=== PATIENT | female | born 1970 | race Caucasian/White ===

== ENCOUNTER → 2023-08-02 13:23 | Outpatient (REF) | payer MEDICARE, SELFPAY | LOC: REG 13:23 | PROVIDERS: ATTENDING PHYSICIAN Neurological Surgery; FAMILY PHYSICIAN Internal Medicine | DX: Z98.1 Arthrodesis status (principal) | CPT/HCPCS: 72040 ==

== ENCOUNTER → 2023-09-15 14:20 | Outpatient (REF) | payer MEDICARE, SELFPAY | LOC: RAD 14:20 | PROVIDERS: ATTENDING PHYSICIAN Neurological Surgery; FAMILY PHYSICIAN Internal Medicine | DX: Z98.1 Arthrodesis status (principal) | CPT/HCPCS: 72050 ==

== ENCOUNTER → 2023-12-12 15:11 | Outpatient (REF) | payer MEDICARE, SELFPAY | LOC: REG 15:11 | PROVIDERS: ATTENDING PHYSICIAN Neurological Surgery; FAMILY PHYSICIAN Internal Medicine | DX: Z98.1 Arthrodesis status (principal) | CPT/HCPCS: 72050 ==

== ENCOUNTER → 2024-01-12 08:32 | Outpatient (REF) | payer MEDICARE, SELFPAY | LOC: HWRAD 08:32 | PROVIDERS: ATTENDING PHYSICIAN Neurological Surgery; FAMILY PHYSICIAN Internal Medicine | DX: M54.16 Radiculopathy, lumbar region (principal); M54.50 Low back pain, unspecified | CPT/HCPCS: 72110 ==

== ENCOUNTER → 2024-02-22 09:13 | Outpatient (REF) | payer MEDICARE, SELFPAY | LOC: RAD 09:13 | PROVIDERS: ATTENDING PHYSICIAN Hospitalist; FAMILY PHYSICIAN Internal Medicine | DX: J18.9 Pneumonia, unspecified organism (principal) | CPT/HCPCS: 71046 ==

== ENCOUNTER → 2024-03-27 10:14 | Outpatient (REF) | payer MEDICARE, SELFPAY | LOC: HWRAD 10:14 | PROVIDERS: ATTENDING PHYSICIAN Obstetrics & Gynecology Gynecology; FAMILY PHYSICIAN Internal Medicine | DX: N95.0 Postmenopausal bleeding (principal) | CPT/HCPCS: 76830; 76856 ==

== ENCOUNTER → 2024-03-30 13:05 | Outpatient (REF) | payer MEDICARE, SELFPAY | LOC: HWWDC 13:05 | PROVIDERS: ATTENDING PHYSICIAN Obstetrics & Gynecology Gynecology; FAMILY PHYSICIAN Internal Medicine | DX: Z12.31 Encounter for screening mammogram for malignant neoplasm of breast (principal) | CPT/HCPCS: 77063; 77067 ==

== ENCOUNTER → 2024-05-21 12:03 | Outpatient (REF) | payer MEDICARE, SELFPAY | LOC: RAD 12:03 | PROVIDERS: ATTENDING PHYSICIAN Hospitalist | DX: R68.89 Other general symptoms and signs (principal) | CPT/HCPCS: 71046 ==

== ENCOUNTER 2024-09-02 04:42 | Emergency (ER) | payer MEDICARE, SELFPAY ==
[2024-09-02] VITALS (7 sets, daily range): BP systolic 125–185; BP diastolic 77–122; BMI 26.1
--- NOTE | 2024-09-02 04:54 | ED.GENMED ---
History of Present Illness
<Roger Fuller Faisal, DO - Last Filed: 09/02/24 05:58>
General
Chief Complaint: Abdominal Pain
Time Seen by Provider: 09/02/24 04:57
History of Present Illness
History of Present Illness:
TIME OF INITIAL ENCOUNTER: 5AM
HPI: The patient had sensation of confusion, nausea, general unwell feeling, and diffuse abdominal pain that started about 5 hours ago. Earlier in the evening, she went to dinner and did have some wine but was fine for the next several hours after
dinner. also noted that her heart rate was elevated as well. She had an endoscopy at [facility] a couple of weeks ago that showed a 'ulcer' and is currently taking Prevacid and she also tried Pepcid. She did take half of her usual dose of
morphine prior to arrival here as she does have a history of chronic regional pain syndrome.
EXAM:
GENERAL: Appears slightly uncomfortable
HEENT: Moist oral mucosa
CARDIOVASCULAR: No murmurs, borderline tachycardic heart rate, regular rhythm, No chest wall tenderness
PULMONARY: No respiratory distress, breath sounds are clear and equal
ABDOMEN: Soft with no peritoneal signs, mild diffuse tenderness
NEUROLOGIC: Excellent strength all extremities, no coordination deficits
PSYCHIATRIC: Appropriate mental status, normal insight and judgement
EXTREMITIES: Nontender, no edema, moves all extremities equally
SKIN: No rash, no lesions
NUMBER AND COMPLEXITY OF PROBLEMS ADDRESSED AT THE ENCOUNTER
� Chronic conditions affecting care: Frequent headaches, chronic regional pain syndrome, PTSD, anxiety/depression
� Acute Exacerbation and/or Progression of Chronic Illness: This is an acute problem
� Differential Diagnosis includes: Gastritis, GERD, perforated ulcer, viral syndrome, duodenitis, exacerbation of chronic regional pain syndrome
AMOUNT AND/OR COMPLEXITY OF DATA TO BE REVIEWED AND ANALYZED
� I performed an independent evaluation of and my interpretation is:
EKG:
CT:
X-rays:
Laboratory Studies: White count and hemoglobin levels are normal,
Other:
� Review of other/old records: I reviewed records, the patient was seen here 2022 related to abdominal pain and CT imaging time was unremarkable
� Clinical information was obtained by an independent historian: I spoke to the at bedside
� Prescriptions/Medications Considered but not given: Offered and considered analgesia for the patient states she just took morphine prior to arrival
� Further testing considered but not performed:
RISK OF COMPLICATIONS AND/OR MORBIDITY OR MORTALITY OF PATIENT MANAGEMENT
� Social determinants of health affecting care: Lives at home
� Discussion with other providers:
� Escalation of care including admission/observation vs risk of discharge considered: Will obtain CT imaging. Giving Zofran, Pepcid, and fluids. She is already on Prevacid as an outpatient. She does have chronic pain related
issues.
ANY OTHER UPDATES:
Past History
<Roger Malone, DO - Last Filed: 09/02/24 05:58>
Past History
ED Past Medical History: Cancer, Psychiatric, Other and Other
ED Past Surgical History: Cholecystectomy and Other
Patient has exhibited threatening behavior?: No
PSI?: No
Social History
Tobacco: Former smoker
Alcohol: None
Drug: None
Personal:
Living: with family
Employment: Employed
Family History
Family History: Other (Noncontributory)
Phy Exam
<Jan Cummings, DO - Last Filed: 09/02/24 09:10>
Physical Exam
Physical Exam:
.
Course
<Roger Malone, DO - Last Filed: 09/02/24 05:58>
Orders/Labs/Results
Orders:
Orders
09/02/24 04:53
0.9% Sodium Chloride 1000 ml [Nss] 1,000 ml IV BOLUS
09/02/24 04:54
Famotidine [Pepcid] 20 mg IV NOW STA
Test Result ONCE
09/02/24 05:00
CT Abd/pelvis W Iv Cont Urgent
Comment:
Reason For Exam: diffuse abd pain; known ulcer
09/02/24 05:05
Sterile Water [Sterile Water For Injection] 10 ml .ROUTE .STK-MED ONE
09/02/24 05:13
Alcohol Urgent
Complete Blood Count/With Diff Urgent
Comprehensive Metabolic Panel Urgent
HCG, Serum Qualitative Screen Urgent
Lipase Urgent
09/02/24 05:46
Morphine Sulfate [Morphine Oral Solution] 7.5 mg PO NOW STA
09/02/24 06:07
Morphine Sulfate [Morphine Oral Solution] 7.5 mg PO NOW STA
Abnormal Lab Results
09/02/24
05:13
RBC 3.95 L 10^6/uL
(4.20-5.40)
MCH 32.4 H pg
(27.0-31.0)
Lipase 22 L U/L
(23-300)
09/02/24 05:13
09/02/24 05:13
Vital Signs
Initial and Last Documented VS:
Initial Vital Signs
Pulse Resp BP Pulse Ox
104 22 185/122 100
09/02/24 04:45 09/02/24 04:45 09/02/24 04:45 09/02/24 04:45
Last Documented Vital Signs
Temp Pulse Resp BP Pulse Ox
97.9 F 80 22 146/80 97
09/02/24 04:56 09/02/24 06:42 09/02/24 04:45 09/02/24 06:00 09/02/24 06:42
<Jan Cummings, DO - Last Filed: 09/02/24 09:10>
Orders/Labs/Results
Orders:
Orders
09/02/24 04:53
0.9% Sodium Chloride 1000 ml [Nss] 1,000 ml IV BOLUS
09/02/24 04:54
Famotidine [Pepcid] 20 mg IV NOW STA
Test Result ONCE
09/02/24 05:00
CT Abd/pelvis W Iv Cont Urgent
Comment:
Reason For Exam: diffuse abd pain; known ulcer
09/02/24 05:05
Sterile Water [Sterile Water For Injection] 10 ml .ROUTE [employer]MED ONE
09/02/24 05:13
Alcohol Urgent
Complete Blood Count/With Diff Urgent
Comprehensive Metabolic Panel Urgent
HCG, Serum Qualitative Screen Urgent
Lipase Urgent
09/02/24 05:46
Morphine Sulfate [Morphine Oral Solution] 7.5 mg PO NOW STA
09/02/24 06:07
Morphine Sulfate [Morphine Oral Solution] 7.5 mg PO NOW STA
Abnormal Lab Results
09/02/24
05:13
RBC 3.95 L 10^6/uL
(4.20-5.40)
MCH 32.4 H pg
(27.0-31.0)
Lipase 22 L U/L
(23-300)
09/02/24 05:13
09/02/24 05:13
Vital Signs
Initial and Last Documented VS:
Initial Vital Signs
Pulse Resp BP Pulse Ox
104 22 185/122 100
09/02/24 04:45 09/02/24 04:45 09/02/24 04:45 09/02/24 04:45
Last Documented Vital Signs
Temp Pulse Resp BP Pulse Ox
97.9 F 80 22 146/80 97
09/02/24 04:56 09/02/24 06:42 09/02/24 04:45 09/02/24 06:00 09/02/24 06:42
<Jan Cummings, DO - Last Filed: 09/02/24 09:10>
*Critical Care Note
Total Time (30-74mins, 75-104mins- exclusive of procedures): Not Applicable
<Jan Cummings, DO - Last Filed: 09/02/24 09:10>
Update Note
Update Note:
9 AM update signout pending CT scan and reevaluation labs are noted patient feeling better will try some p.o. fluids and crackers
ED Attending Note
<Roger Malone, DO - Last Filed: 09/02/24 05:58>
-
Portions of this chart may have been created with voice recognition software.� Occasional wrong word or��sound alike� substitutions may have occurred due to the inherent limitations of voice recognition software.
Discharge Plan
Departure
Patient Disposition: Home (Routine Discharge)
Date of Disposition: 09/02/24
Time of Disposition: 09:09
Patient with high blood pressure during this ER visit?: No
Condition: Good
Discharge Problem:
Abdominal pain
Instructions: Abdominal Pain
Prescriptions:
No Action
Ketamine Nasal [place]
1 spray intranasal QIDPRN PRN (Reason: pain)
lansoprazole [Prevacid] 30 MG capsule,delayed release(DR/EC)
30 mg PO QPM
hydromorphone 4 MG tablet
8 mg PO TID
cyclobenzaprine 10 MG tablet
1 tab PO TID @ 0800,1200,1700
Patient Comments:
PT DOES NOT KNOW DOSE
buprenorphine HCl [Belbuca] 450 MCG film
450 mcg BC PRN PRN (Reason: pain)
prednisone 5 mg Tablet
5 mg PO PRN PRN (Reason: Inflammation)
bupropion HCl 300 mg Tablet Extended Release 24 Hr
300 mg PO DAILY
Vraylar 3 mg Capsule
3 mg PO HS
Medical Marijuana
1 dose inhalation PRN PRN (Reason: pain)
conjugated estrogens 1.25 mg Tablet
5 mg PO DAILY
Rx Instructions:
Per Pharmacy
Excedrin Migraine 250-250-65 mg Tablet
1 tab PO DIRECTED
Referrals:
Gio Newsome MD [Family Provider] - Next open appointment
Interventions
Interventions:
*Risk Screen - Suicide Last Done: 09/02/24 04:45
*General Assessment Last Done: 09/02/24 05:21
*Neglect/Abuse Screening Last Done: 09/02/24 04:45
*ED- Fall Risk Assessment Last Done: 09/02/24 05:21
*ED COVID-19 Vaccine History Last Done: 09/02/24 05:21
KR-Lvalmz-Xxvropwvgu Assessment Last Done: 09/02/24 05:21
Discharge Date and Time
Print Language: SERBIAN
[2024-09-02] MEDS: PEPCID 20 MG IV (05:28)
[2024-09-02] MEDS: NSS 1000 IV (05:33)
[2024-09-02 05:52] LABS: % Basophils 0.7 % (0-2); % Eosinophils 1.5 % (0-6); % Immature Granulocytes 0.3 % (0-0.5); % Lymphocytes 37.4 % (20.5-51.1); % Monocytes 7.2 % (1.7-9.3); % Neutrophils 52.9 % (42.2-75.2); Absolute Eosinophils 0.1 10^3/uL (0-0.7); Absolute Lymphocytes 2.2 10^3/uL (1.2-3.4); Absolute Monocytes 0.4 10^3/uL (0.1-0.6); Absolute Neutrophils 3.1 10^3/uL (1.4-6.5); Hemoglobin 12.8 g/dL (12.0-16.0); Mean Corp Hgb Conc. 33.7 g/dL (33.0-37.0); Mean Corpuscular Hgb 32.4 pg (27.0-31.0); Mean Corpuscular Volume 96.2 fL (81.0-99.0); Mean Platelet Volume 9.3 fL (7.4-10.4); Nucleated Red Blood Cells % 0 %; Platelet Count 260 10^3/uL (130-400); Red Blood Cell Count 3.95 10^6/uL (4.20-5.40); Red Cell Dist. Width 13.2 % (11.5-14.5); White Blood Cell Count 5.9 10^3/uL (4.8-10.8)
[2024-09-02 06:07] LABS: ALT (SGPT) 15 U/L (0-35); AST (SGOT) 22 U/L (14-36); Albumin 4.5 g/dl (3.5-5.0); Alkaline Phosphatase 63 U/L (38-126); Blood Urea Nitrogen 16 mg/dl (7-17); Calcium 9.8 mg/dl (8.4-10.2); Carbon Dioxide 28 mmol/L (22-30); Chloride 100 mmol/L (98-107); Estimated Creatinine Clearance 103 ml/min; Glucose 87 mg/dl (70-99); HCG, Serum Qualitative Screen Negative; Lipase 22 U/L (23-300); Potassium 4.2 mmol/L (3.5-5.1); Sodium 138 mmol/L (135-145); Total Bilirubin 0.5 mg/dl (0.2-1.3); eGFR > 60.00
[2024-09-02 06:11] LABS: Alcohol None Detected
[2024-09-02] MEDS: MORPHINE ORAL SOLUTION 7.5 MG PO (06:23)
== END 2024-09-02 09:43 | disposition home or self-care (01) ==
LOC: EMR 04:42
PROVIDERS: Emergency Medicine; EMERGENCY PHYSICIAN Emergency Medicine; FAMILY PHYSICIAN Internal Medicine
DX: R10.84 Generalized abdominal pain (principal); R11.0 Nausea; R41.0 Disorientation, unspecified; K27.9 Peptic ulcer, site unspecified, unspecified as acute or chronic, without hemorrhage or perforation; F41.9 Anxiety disorder, unspecified; F32.A Depression, unspecified; F43.10 Post-traumatic stress disorder, unspecified; G90.50 Complex regional pain syndrome I, unspecified; Z91.040 Latex allergy status; Z91.018 Allergy to other foods; Z91.013 Allergy to seafood; Z91.048 Other nonmedicinal substance allergy status
CPT/HCPCS: 99284; 96361; 96374; 74177; 80053; 82077; 83690; 84703; 85025; Q9967

== ENCOUNTER → 2024-10-29 13:17 | Outpatient (REF) | payer MEDICARE, SELFPAY | LOC: RAD 13:17 | PROVIDERS: ATTENDING PHYSICIAN Neurological Surgery; FAMILY PHYSICIAN Internal Medicine | DX: Z98.1 Arthrodesis status (principal); M54.12 Radiculopathy, cervical region; W19.XXXA Unspecified fall, initial encounter | CPT/HCPCS: 72050 ==

== ENCOUNTER → 2024-10-31 11:25 | Outpatient (REF) | payer MEDICARE, SELFPAY | LOC: RAD 11:25 | PROVIDERS: ATTENDING PHYSICIAN Hospitalist; FAMILY PHYSICIAN Internal Medicine | DX: R07.81 Pleurodynia (principal) | CPT/HCPCS: 71101 ==

== ENCOUNTER 2024-11-08 20:18 | Emergency (ER) | payer MEDICARE, SELFPAY ==
[2024-11-08 20:22] VITALS: BP 146/89
[2024-11-08 21:06] VITALS: BP 115/78
[2024-11-08 21:09] VITALS: BMI 26.3
[2024-11-08 22:00] VITALS: BP 119/77
[2024-11-08] MEDS: NSS 1000 IV (22:10)
[2024-11-08] MEDS: DECADRON 10 MG IV (22:11)
[2024-11-08] MEDS: BENADRYL 25 MG IV (22:13)
[2024-11-08] MEDS: REGLAN 10 MG IV (22:15)
[2024-11-08 22:17] LABS: Hematocrit 33.7 % (37.0-47.0); Hemoglobin 11.2 g/dL (12.0-16.0); Mean Corp Hgb Conc. 33.2 g/dL (33.0-37.0); Mean Corpuscular Volume 98.3 fL (81.0-99.0); Nucleated Red Blood Cells % 0 %; Platelet Count 245 10^3/uL (130-400); Red Cell Dist. Width 13.6 % (11.5-14.5)
[2024-11-08 22:30] LABS: ALT (SGPT) < 10 U/L (0-35); AST (SGOT) 20 U/L (14-36); Albumin 3.7 g/dl (3.5-5.0); Alkaline Phosphatase 64 U/L (38-126); Blood Urea Nitrogen 18 mg/dl (7-17); Calcium 9.4 mg/dl (8.4-10.2); Carbon Dioxide 32 mmol/L (22-30); Chloride 106 mmol/L (98-107); Estimated Creatinine Clearance 103 ml/min; Glucose 86 mg/dl (70-99); Potassium 4.2 mmol/L (3.5-5.1); Sodium 140 mmol/L (135-145); Total Protein 5.8 g/dl (6.3-8.2); eGFR > 60.00
[2024-11-08 23:00] VITALS: BP 112/83
--- NOTE | 2024-11-08 23:42 | ED.GENMED ---
History of Present Illness
General
Chief Complaint: Allergic Reaction
Source: patient
Time Seen by Provider: 11/08/24 21:40
Nursing documentation reviewed up to this point in time: agreed with
History of Present Illness
History of Present Illness:
Note:
CHIEF COMPLAINT(S)
Allergic reaction after receiving propofol and ketamine
HISTORY OF PRESENT ILLNESS
The patient is a 53-year-old female who presents with signs of an allergic reaction following the administration of propofol and ketamine earlier today. She reports noticing the onset of symptoms around 2 p.m. She observed that her tongue was bluish
but denied having difficulty swallowing or breathing. The patient mentioned that she typically experiences migraines and developed one this afternoon. Additionally, she reported chest pain and an unusual sensation in her arm.
REVIEW OF SYSTEMS
- Headache: Reports migraine this afternoon.
- Oral: Blue discoloration of the tongue observed, no difficulty swallowing.
- Respiratory: Denied difficulty breathing.
- Cardiovascular: Reports chest pain.
- Neurological: Usual migraines.
- Musculoskeletal: Unusual sensation in the arm.
PHYSICAL EXAM
General: Alert, no acute distress.
Skin: Warm, dry.
Head: Normocephalic, atraumatic.
Eye Ears, nose, mouth and throat: Oral mucosa moist, blue discoloration of the tongue noted.
Cardiovascular: Normal peripheral perfusion, No edema.
Respiratory: Respirations are non-labored.
Gastrointestinal: Abdomen nondistended.
Back: Normal range of motion, Normal alignment.
Musculoskeletal: Normal ROM, normal strength.
Neurological: Alert and oriented to person, place, time, and situation, No focal neurological deficit observed.
Psychiatric: Cooperative, appropriate mood & affect.
PROBLEM LIST
- Acute allergic reaction
- Migraine
DIFFERENTIAL DIAGNOSIS
The Differential Diagnosis includes, in no particular order and is not limited to:
1. Anaphylaxis
2. Angioedema
3. Drug reaction
4. Migraine with aura
5. Vasospasm
6. Anxiety attack
7. Hypoxia
8. Cardiovascular event
9. Hyperventilation syndrome
10. Neurological event
Disposition:
SUMMARY OF ENCOUNTER
The patient, a 53-year-old female, presented with an allergic reaction following the administration of propofol and ketamine. Upon arrival at the emergency department, she reported a blue discoloration of the tongue but did not experience difficulty
breathing. She had a migraine, which is usual for her, along with chest pain and an unusual sensation in her arm. After treatment, she reported feeling much better, with an improvement in her headache symptoms. The patient mentioned that she is
overdue for her Botox treatment for migraines and expressed her wish to be discharged.
DISPOSITION
Discharge.
ASSESSMENT
The patient likely experienced an acute allergic reaction to administered propofol and ketamine, accompanied by her usual migraine symptoms.
PLAN
The patient has been stabilized and feels significantly better with resolved acute symptoms.
MEDICATION RECONCILIATION
Prescription medication was considered, but ultimately no new medication was prescribed at this time.
MEDICAL DECISION MAKING
- Complexity of Data Reviewed: Chronic conditions affecting care include allergies and migraines. Differential diagnosis considered included anaphylaxis, angioedema, drug reaction, migraine with aura, vasospasm, anxiety attack, hypoxia,
cardiovascular event, hyperventilation syndrome, and neurological event.
- Risk: Consideration of Admission/Observation: Escalation of care including admission/observation was considered given the complexity and risk of the patients presenting complaint and exam findings. However, ultimately, the patient is safe for
outpatient management with close follow-up. Reasoning: Work-up reassuring, does not reveal any acute life/organ-threatening processes, patients symptoms well controlled upon reevaluation, reexamination is reassuring, vitals are stable, patient
agreeable with discharge, reliable for follow-up.
DIAGNOSIS
- Acute allergic reaction due to propofol and ketamine (T88.7)
- Migraine, unspecified, not intractable, without status migrainosus (G43.909)
Past History
Past History
ED Past Medical History: Cancer, Psychiatric, Other and Other
ED Past Surgical History: Cholecystectomy and Other
Patient has exhibited threatening behavior?: No
PSI?: No
Social History
Tobacco: Former smoker
Alcohol: None
Drug: None
Personal:
Living: with family
Employment: Employed
Family History
Family History: Other (Noncontributory)
Phy Exam
General Physical Exam
General Presentation: well appearing and no apparent distress
General Skin: warm and dry
General Habitus: normal
General Mental: alert
General Hydration: appears well hydrated
ENT Exam
ENT Exam: EOMI, neck supple, normocephalic and swallowing well
Additional ENT: Bluish tongue
Eye Exam
Eye Exam: PERRL, cornea clear and conjunctiva normal
Cardiovascular Exam
Cardiovascular Exam: regular rate/rhythm, no edema, no murmur and normal peripheral pulses
Pulmonary Exam
Pulmonary Exam: lungs clear, no respiratory distress, no rales, no crackles, no rhonchi, no stridor, no wheezing and no cough
Gastrointestinal Exam
Gastrointestinal Exam: normal bowel sounds, non tender, soft, no organomegaly, no pulsatile mass and non distended
Neurological Exam
Neurological Exam: alert, oriented x3, no motor deficits and speech normal
Musculoskeletal Exam
Musculoskeletal Exam: full ROM and no edema
Skin Exam
Skin Exam: normal color, warm/dry, no rash and no petechia
Psychiatric Exam
Psychiatric Exam: normal mood/affect
Course
Orders/Labs/Results
Orders:
Orders
11/08/24 20:22
EKG [Electrocardiogram (*1)] Urgent
Reason for Study: Chest Pain
EKG- Treatment ONCE
11/08/24 21:57
0.9% Sodium Chloride 1000 ml [Nss] 1,000 ml IV BOLUS
Dexamethasone Sod Phosphate [Decadron] 10 mg IV NOW STA
Diphenhydramine [Benadryl] 25 mg IV NOW STA
Metoclopramide [Reglan] 10 mg IV NOW STA
11/08/24 22:06
Complete Blood Count/With Diff Urgent
Comprehensive Metabolic Panel Urgent
Erythrocyte Sed Rate Urgent
Abnormal Lab Results
11/08/24
22:06
RBC 3.43 L 10^6/uL
(4.20-5.40)
Hgb 11.2 L g/dL
(12.0-16.0)
Hct 33.7 L %
(37.0-47.0)
MCH 32.7 H pg
(27.0-31.0)
Carbon Dioxide 32 H mmol/L
(22-30)
BUN 18 H mg/dl
(7-17)
Total Protein 5.8 L g/dl
(6.3-8.2)
11/08/24 22:06
11/08/24 22:06
Vital Signs
Initial and Last Documented VS:
Initial Vital Signs
Temp Pulse Resp BP Pulse Ox
97.7 F 94 16 146/89 100
11/08/24 20:22 11/08/24 20:22 11/08/24 20:22 11/08/24 20:22 11/08/24 20:22
Last Documented Vital Signs
Temp Pulse Resp BP Pulse Ox
97.7 F 81 16 112/83 99
11/08/24 20:22 11/08/24 23:35 11/08/24 23:15 11/08/24 23:00 11/08/24 23:15
*Pulse Oximetry
SaO2: 99
Oxygen Mode of Delivery: Room air
Patient hypoxic: no
*Critical Care Note
Total Time (30-74mins, 75-104mins- exclusive of procedures): Not Applicable
ED Attending Note
-
Portions of this chart may have been created with voice recognition software.� Occasional wrong word or��sound alike� substitutions may have occurred due to the inherent limitations of voice recognition software.
Discharge Plan
Departure
Patient Disposition: Home (Routine Discharge)
Date of Disposition: 11/08/24
Time of Disposition: 23:48
Patient with high blood pressure during this ER visit?: No
Condition: Good
Discharge Problem:
Allergic reaction, Migraine headache
Instructions: Headaches in adults, Allergic reaction - ED discharge instructions
Prescriptions:
New
diphenhydramine HCl [Benadryl] 25 mg capsule
25 mg PO TID PRN (Reason: allergy symptoms) Qty: 14 0RF
prednisone 50 mg Tablet
50 mg PO DAILY Qty: 4 0RF
epinephrine [EpiPen] 0.3 mg/0.3 mL Auto-Injector
0.3 mg IM .STAT PRN (Reason: anaphylaxis) Qty: 1 0RF
No Action
Ketamine Nasal [place]
1 spray intranasal QIDPRN PRN (Reason: pain)
lansoprazole [Prevacid] 30 MG capsule,delayed release(DR/EC)
30 mg PO QPM
hydromorphone 4 MG tablet
8 mg PO TID
cyclobenzaprine 10 MG tablet
1 tab PO TID @ 0800,1200,1700
Patient Comments:
PT DOES NOT KNOW DOSE
buprenorphine HCl [Belbuca] 450 MCG film
450 mcg BC PRN PRN (Reason: pain)
prednisone 5 mg Tablet
5 mg PO PRN PRN (Reason: Inflammation)
bupropion HCl 300 mg Tablet Extended Release 24 Hr
300 mg PO DAILY
Vraylar 3 mg Capsule
3 mg PO HS
Medical Marijuana
1 dose inhalation PRN PRN (Reason: pain)
conjugated estrogens 1.25 mg Tablet
5 mg PO DAILY
Rx Instructions:
Per Pharmacy
Excedrin Migraine 250-250-65 mg Tablet
1 tab PO DIRECTED
Referrals:
Gio Newsome MD [Family Provider, Internal Medicine]
Activity Restrictions/Additional Instructions:
Thank You for choosing [facility].
It was a pleasure meeting you and taking part in your care. We hope for your continued healing and wellness.
Please read discharge instructions in their entirety. However, they are for general education and may not describe your exact diagnosis at discharge. Information on your ER visit and medical conditions were discussed with you along with appropriate
follow up information...
If indicated, please take your medications as instructed and indicated on discharge paperwork.
Please schedule a follow up appointment as directed. Call to schedule an appointment
Please return to the emergency department with ANY change in, persisting, or worsening of symptoms. If any of your symptoms do not improve, or persist, or become more severe within 6-12 hours, please return to the emergency department for further
care.
Please return to the emergency department if you develop a headache, neck pain/stiffness, fever greater than 100.4F, chest pain, shortness of breath, persistent nausea, vomiting, slurred speech, difficulty walking, numbness/tingling, weakness, signs
of infection or any other symptoms that are worrisome to you.
If you have any questions or concerns please do not hesitate to call the Hospital at or E-mail me directly at [email or web address]
Interventions
Interventions:
*Risk Screen - Suicide Last Done: 11/08/24 20:22
*General Assessment Last Done: 11/08/24 20:22
*Neglect/Abuse Screening Last Done: 11/08/24 20:22
*ED- Fall Risk Assessment Last Done: 11/08/24 21:02
ED- Cardiac Assessment Last Done: 11/08/24 21:02
ED- Pulmonary Assessment Last Done: 11/08/24 21:02
ED-Skin Assessment Last Done: 11/08/24 21:02
Discharge Date and Time
Print Language: MONGOLIAN
== END 2024-11-09 00:08 | disposition home or self-care (01) ==
LOC: EMR 20:18
PROVIDERS: EMERGENCY PHYSICIAN Student in an Organized Health Care Education/Training Program; FAMILY PHYSICIAN Internal Medicine
DX: T78.40XA Allergy, unspecified, initial encounter (principal); G43.909 Migraine, unspecified, not intractable, without status migrainosus; Y92.9 Unspecified place or not applicable; Z87.891 Personal history of nicotine dependence; Z90.49 Acquired absence of other specified parts of digestive tract
CPT/HCPCS: 99283; 96374; 96375; 96361; 80053; 85025; 85652; 93005

== ENCOUNTER 2025-03-22 18:50 | Emergency (ER) | payer MEDICARE, SELFPAY ==
[2025-03-22 18:52] VITALS: BP 191/115
[2025-03-22 19:32] LABS: Hematocrit 35.5 % (37.0-47.0); Hemoglobin 11.6 g/dL (12.0-16.0); Mean Corp Hgb Conc. 32.7 g/dL (33.0-37.0); Mean Corpuscular Volume 98.9 fL (81.0-99.0); Nucleated Red Blood Cells % 0 %; Platelet Count 340 10^3/uL (130-400); Red Cell Dist. Width 13.8 % (11.5-14.5)
[2025-03-22 19:46] LABS: ALT (SGPT) 22 U/L (0-35); AST (SGOT) 30 U/L (14-36); Albumin 4.4 g/dl (3.5-5.0); Alkaline Phosphatase 71 U/L (38-126); Blood Urea Nitrogen 23 mg/dl (7-17); Calcium 9.4 mg/dl (8.4-10.2); Carbon Dioxide 33 mmol/L (22-30); Chloride 97 mmol/L (98-107); Glucose 93 mg/dl (70-99); Lipase 32 U/L (23-300); Potassium 4.2 mmol/L (3.5-5.1); Sodium 133 mmol/L (135-145); Total Protein 6.8 g/dl (6.3-8.2); eGFR > 60.00
[2025-03-22 20:06] LABS: Troponin I < 0.012 ng/ml
[2025-03-22 21:33] VITALS: BP 159/95
[2025-03-22 21:35] VITALS: BP 159/95; BMI 24.2
[2025-03-22 22:00] VITALS: BP 149/95
[2025-03-22] MEDS: NSS 500 IV (22:15)
[2025-03-22] MEDS: TORADOL 30 MG IV (22:17)
[2025-03-22] MEDS: BENADRYL 25 MG IV (22:20)
--- NOTE | 2025-03-22 22:22 | ED.GENMED ---
History of Present Illness
General
Chief Complaint: Chest Pain
Source: patient
Time Seen by Provider: 03/22/25 21:08
History of Present Illness
History of Present Illness:
54-year-old female with past medical history of RSD, hypertension, anxiety/depression/PTSD presenting to the emergency department for evaluation of a multitude of symptoms with noted chest discomfort, palpitations, headache, lightheadedness, nausea
and some shortness of breath secondary to the pain all related to what she believes is to a new prescription and baclofen. Patient states that she usually takes Flexeril or tizanidine but was switched to baclofen by the primary care provider. She
states that currently the symptom bothering her the most is her headache/migraine, noting that she has been to the hospital many times for similar and usually gets relief with migraine cocktail consisting of Reglan Benadryl and Toradol and/or
Decadron. She describes the chest discomfort to be reproducible, diffuse anterior chest, nonpositional nor pleuritic. No cough or recent illnesses. Patient states that the other symptoms/pain are similar to daily episodes of pain that she deals
with. Patient did take an oral dose of her morphine this evening which she states did help slightly but overall still with pain.
Past History
Past History
ED Past Medical History: Cancer, HTN, Psychiatric, Other and Other
ED Past Surgical History: Cholecystectomy, Orthopedic and Other
Patient has exhibited threatening behavior?: No
PSI?: No
Social History
Tobacco: Former smoker
Alcohol: None
Drug: None
Personal:
Living: with family
Employment: Employed
Family History
Family History: Other (Noncontributory)
Review of Systems
Review of Systems
All Other Systems: ROS reviewed and negative except as documented in HPI and ROS
Phy Exam
Physical Exam
Physical Exam:
GENERAL: Alert , holding ice pack on the left side of her head, appears uncomfortable
HEAD: Normocephalic atraumatic
EYE: pupils equal and reactive, 4mm bilat, EOMI, PERRL
NECK: Supple, FROM
ENT: o/p clr, mmm.
CARDIAC: Regular rate and rhythm .
LUNGS: Clear breath sounds bilaterally, no acute respiratory distress, no wheezes/rales/rhonchi
ABDOMEN: Soft, without focal tenderness, no r/g, no cvat
NEUROLOGICAL: Alert and oriented
SKIN: Warm and dry, skin intact.
MUSCULOSKELETAL: well perfused.
PSYCH: Normal and appropriate interaction.
Scores
Heart Failure Risk
Heart Failure Risk Score: Not Applicable
Heart Score for Chest Pain Patients
STEMI patient?: Not applicable
Withdrawal Assessment of Alcohol
Withdrawal Assessment Completed?: Not applicable
Course
Orders/Labs/Results
Orders:
Orders
03/22/25 18:51
EKG [Electrocardiogram (*1)] Urgent
Reason for Study: Chest Pain
EKG- Treatment ONCE
03/22/25 18:55
Electrocardiogram (*1) Urgent
Reason for Study: Chest Pain
03/22/25 18:56
EKG- Treatment ONCE
03/22/25 19:08
Complete Blood Count/With Diff Urgent
Comprehensive Metabolic Panel Urgent
Lipase Urgent
Troponin I Urgent
03/22/25 21:09
CR Chest - 2 Views Urgent
Comment:
Reason For Exam: chest pain
03/22/25 22:00
Diphenhydramine [Benadryl] 25 mg IV NOW STA
Ketorolac [Toradol] 30 mg IV NOW STA
Metoclopramide [Reglan] 10 mg IV NOW STA
03/22/25 22:13
Troponin I Urgent
03/22/25 22:15
0.9% Sodium Chloride 500 ml [Nss] 500 ml IV BOLUS
Abnormal Lab Results
03/22/25
19:08
RBC 3.59 L 10^6/uL
(4.20-5.40)
Hgb 11.6 L g/dL
(12.0-16.0)
Hct 35.5 L %
(37.0-47.0)
MCH 32.3 H pg
(27.0-31.0)
MCHC 32.7 L g/dL
(33.0-37.0)
Sodium 133 L mmol/L
(135-145)
Chloride 97 L mmol/L
(98-107)
Carbon Dioxide 33 H mmol/L
(22-30)
BUN 23 H mg/dl
(7-17)
03/22/25 19:08
03/22/25 19:08
Vital Signs
Initial and Last Documented VS:
Initial Vital Signs
Temp Pulse Resp BP Pulse Ox
97.7 F 89 18 191/115 99
03/22/25 18:52 03/22/25 18:52 03/22/25 18:52 03/22/25 18:52 03/22/25 18:52
Last Documented Vital Signs
Temp Pulse Resp BP Pulse Ox
97.7 F 70 17 124/83 94
03/22/25 21:35 03/22/25 23:15 03/22/25 23:07 03/22/25 23:07 03/22/25 23:15
MDM/Problems Addressed
Differential Diagnosis Includes:
Exacerbation of acute on chronic pain
ACS
PE
Dissection
Pericarditis/Myocarditis
PTX
Musculoskletal pain
MDM/Problems Addressed:
54-year-old female presenting to the emergency department for a multitude of symptoms, even though she was initially wanting to be seen for chest pain she is telling me now that her biggest concern is her migraine headache. The chest pain started
yesterday and given no EKG changes and normal troponin my suspicion for ACS is already very low. I do's her symptoms tonight are all related to her history. Chest x-ray shows no acute abnormalities, no pneumothorax, no effusions or signs of
infection. Will treat with migraine cocktail as patient has had significant relief with this in the past. Dissipate discharge home. Will repeat troponin.
*Radiology
Radiology exam reviewed: preliminary read by ED provider (Normal chest x-ray)
*Pulse Oximetry
SaO2: 100
Oxygen Mode of Delivery: Room air
Patient hypoxic: no
*EKG
Comparison EKG: no changes
Heart Rate: 66
Rate: normal
Rhythm: sinus
[place]: normal axis
Ischemia: no ischemia
*Hr Associate Interpretation
Rate: normal
Heart Rate: 67
Rhythm: sinus
*Critical Care Note
Total Time (30-74mins, 75-104mins- exclusive of procedures): Not Applicable
Data Reviewed
Review of Other/Old Records Reveals: Labs and Records
Patient Management
Escalation/DeEscalation of care consider admission/obs:
Patient reporting significant resolution of her headache and ultimately feels comfortable being discharged home. Repeat troponin negative. Repeat EKG without any changes. Stable for discharge home and outpatient management with primary care
provider. Aware of return precautions.
ED Attending Note
-
Portions of this chart may have been created with voice recognition software.� Occasional wrong word or��sound alike� substitutions may have occurred due to the inherent limitations of voice recognition software.
Discharge Plan
Departure
Patient Disposition: Home (Routine Discharge)
Date of Disposition: 03/22/25
Time of Disposition: 23:13
Patient with high blood pressure during this ER visit?: Yes
Discharge Problem:
Headache, Chest wall pain
Prescriptions:
No Action
Ketamine Nasal [place]
1 spray intranasal QIDPRN PRN (Reason: pain)
lansoprazole [Prevacid] 30 MG capsule,delayed release(DR/EC)
30 mg PO QPM
hydromorphone 4 MG tablet
8 mg PO TID
cyclobenzaprine 10 MG tablet
1 tab PO TID @ 0800,1200,1700
Patient Comments:
PT DOES NOT KNOW DOSE
buprenorphine HCl [Belbuca] 450 MCG film
450 mcg BC PRN PRN (Reason: pain)
prednisone 5 mg Tablet
5 mg PO PRN PRN (Reason: Inflammation)
bupropion HCl 300 mg Tablet Extended Release 24 Hr
300 mg PO DAILY
Vraylar 3 mg Capsule
3 mg PO HS
Medical Marijuana
1 dose inhalation PRN PRN (Reason: pain)
conjugated estrogens 1.25 mg Tablet
5 mg PO DAILY
Rx Instructions:
Per Pharmacy
Excedrin Migraine 250-250-65 mg Tablet
1 tab PO DIRECTED
diphenhydramine HCl [Benadryl] 25 mg capsule
25 mg PO TID PRN (Reason: allergy symptoms) Qty: 14 0RF
prednisone 50 mg Tablet
50 mg PO DAILY Qty: 4 0RF
epinephrine [EpiPen] 0.3 mg/0.3 mL Auto-Injector
0.3 mg IM .STAT PRN (Reason: anaphylaxis) Qty: 1 0RF
Referrals:
Gio Newsome MD [Family Provider, Internal Medicine]
Interventions
Interventions:
*Risk Screen - Suicide Last Done: 03/22/25 18:52
*General Assessment Last Done: 03/22/25 18:52
*Neglect/Abuse Screening Last Done: 03/22/25 21:35
*ED- Fall Risk Assessment Last Done: 03/22/25 21:36
*ED COVID-19 Vaccine History Last Done: 03/22/25 18:52
*ED Influenza Vaccine History Last Done: 03/22/25 18:52
*Nursing Disposition Last Done: 03/22/25 23:23
ED- Cardiac Assessment Last Done: 03/22/25 21:37
Discharge Date and Time
Discharge Date/Time: 03/22/25 23:28
Print Language: GABONESE
[2025-03-22] MEDS: REGLAN 10 MG IV (22:25)
[2025-03-22 22:53] LABS: Troponin I < 0.012 ng/ml
[2025-03-22 23:05] VITALS: BP 124/83
[2025-03-22 23:07] VITALS: BP 124/83
== END 2025-03-22 23:28 | disposition home or self-care (01) ==
LOC: EMR 18:50
PROVIDERS: Emergency Medicine; Physician Assistant Medical; EMERGENCY PHYSICIAN Emergency Medicine; FAMILY PHYSICIAN Internal Medicine
DX: R51.9 Headache, unspecified (principal); R07.89 Other chest pain; G90.50 Complex regional pain syndrome I, unspecified; I10 Essential (primary) hypertension; F41.9 Anxiety disorder, unspecified; F32.A Depression, unspecified; F43.10 Post-traumatic stress disorder, unspecified; Z87.891 Personal history of nicotine dependence
CPT/HCPCS: 99284; 96374; 96375 ×2; 96361; 71046; 80053; 83690; 84484; 85025; 93005

== ENCOUNTER 2025-03-29 03:22 | Emergency (ER) | payer MEDICARE, SELFPAY ==
[2025-03-29 03:24] VITALS: BP 151/92
[2025-03-29 03:37] VITALS: BMI 25.6
[2025-03-29 03:39] VITALS: BP 133/100
[2025-03-29 04:00] VITALS: BP 119/62
[2025-03-29 04:33] LABS: ALT (SGPT) 21 U/L (0-35); AST (SGOT) 26 U/L (14-36); Albumin 4.3 g/dl (3.5-5.0); Alkaline Phosphatase 69 U/L (38-126); Blood Urea Nitrogen 14 mg/dl (7-17); Calcium 9.8 mg/dl (8.4-10.2); Carbon Dioxide 35 mmol/L (22-30); Chloride 104 mmol/L (98-107); Estimated Creatinine Clearance 87 ml/min; Glucose 99 mg/dl (70-99); Potassium 3.9 mmol/L (3.5-5.1); Sodium 143 mmol/L (135-145); Total Protein 6.8 g/dl (6.3-8.2); eGFR > 60.00
[2025-03-29] MEDS: BENADRYL 12.5 MG IV (04:33)
[2025-03-29] MEDS: REGLAN 10 MG IV (04:33)
--- NOTE | 2025-03-29 04:34 | ED.CVA ---
History of Present Illness
General
Chief Complaint: CVA/TIA Symptoms
Source: patient and spouse
Exam Limitations: none
Time Seen by Provider: 03/29/25 03:37
Nursing documentation reviewed up to this point in time: agreed with
Onset of Stroke Symptoms
Onset of symptoms known: Yes
Date of onset of symptoms: 03/29/25
History of Present Illness
History of Present Illness:
Patient with history of chronic pain syndrome, migraine headache, and ongoing intermittent dizziness with nausea, associated with blurred vision and arm tingling sensation over the past 2 months, presents to ED secondary to worsening headache with
dizziness and nausea over the past 1 week. Denies fever or chills. Denies difficulty with ambulation. Denies weakness. Patient states that her symptoms appear to be worse since she fell backwards and hit her head 2 months ago. Patient states
that she never received any imaging studies of her head since the fall. Patient was seen in ED 1 week ago for similar complaint, including chest pain with palpitations, which are still ongoing as well. Denies loss of appetite. Denies difficulty
with sleeping. Denies vomiting or diarrhea. Patient has been recommended to see rough carpenter as well as neurologist for an outpatient consultation, but is having difficult time obtaining timely appointment.
Past History
Past History
ED Past Medical History: Cancer, HTN, Psychiatric, Other and Other
ED Past Surgical History: Cholecystectomy, Orthopedic and Other
Patient has exhibited threatening behavior?: No
PSI?: No
Social History
Tobacco: Former smoker
Alcohol: None
Drug: None
Personal:
Living: with family
Employment: Employed
Family History
Family History: Other (Noncontributory)
Review of Systems
Review of Systems
Allergies reviewed?: Yes
All Other Systems: ROS reviewed and negative except as documented in HPI and ROS
Constitutional: Reports no symptoms; Denies fever
EENT: Reports no symptoms
Respiratory: Reports no symptoms
Cardiac: Reports chest pain and palpitations; Denies syncope
ABD/GI: Reports no symptoms; Denies vomiting or diarrhea
Musculoskeletal: Reports no symptoms
Skin: Reports no symptoms
Neurological: Reports dizzy, headache and numbness
Phy Exam
Physical Exam
Physical Exam:
Physical Exam
General: mild painful distress, not acutely ill. afebrile
Head: nc/at. eomi
Neck: supple. normal range of motion
Heart: s1/s2 regular rate and rhythm
Lungs: no acute respiratory distress. clear bilaterally
Abdomen: normal bowel sounds. not tender.
Neuro: alert and oriented x 3. no focal neurological deficits. normal speech. normal gait
Skin: no rash
Psychiatric: well kept. interactive and cooperative
Extremities: no edema. no calf tenderness.
Course
Orders/Labs/Results
Orders:
Orders
03/29/25 03:59
Complete Blood Count/With Diff Urgent
Comprehensive Metabolic Panel Urgent
03/29/25 04:15
CT Head W/o Iv Contrast Urgent
Comment:
Reason For Exam: headache
Diphenhydramine [Benadryl] 12.5 mg IV NOW STA
Metoclopramide [Reglan] 10 mg IV NOW STA
03/29/25 04:16
Electrocardiogram (*1) Urgent
Reason for Study: Chest Pain
EKG- Treatment ONCE
0.9% Sodium Chloride 250 ml [Nss] 250 ml IV BOLUS
03/29/25 04:20
Troponin I Urgent
Abnormal Lab Results
03/29/25
03:59
RBC 3.60 L 10^6/uL
(4.20-5.40)
Hct 36.3 L %
(37.0-47.0)
MCV 100.8 H fL
(81.0-99.0)
MCH 33.3 H pg
(27.0-31.0)
Absolute Lymphs (auto) 3.5 H 10^3/uL
(1.2-3.4)
Neutrophils % 29.9 L %
(42.2-75.2)
Lymphocytes % 55.8 H %
(20.5-51.1)
Carbon Dioxide 35 H mmol/L
(22-30)
03/29/25 03:59
03/29/25 03:59
Vital Signs
Initial and Last Documented VS:
Initial Vital Signs
Temp Pulse Resp BP Pulse Ox
97.5 F 115 18 151/92 96
03/29/25 03:24 03/29/25 03:24 03/29/25 03:24 03/29/25 03:24 03/29/25 03:24
Last Documented Vital Signs
Temp Pulse Resp BP Pulse Ox
97.5 F 96 11 101/49 94
03/29/25 03:24 03/29/25 05:52 03/29/25 05:52 03/29/25 05:52 03/29/25 05:52
MDM/Problems Addressed
MDM/Problems Addressed:
CT head report reviewed and discussed with patient and spouse. Patient otherwise is afebrile, hemodynamically stable, and without any focal neurological deficit during evaluation. In light of patient's ongoing symptoms, especially chest pain,
patient will be referred to cardiology for an outpatient consultation. In addition, patient will continue to follow-up with neurology as an outpatient, with her ongoing headache and dizziness.
*Pulse Oximetry
SaO2: 96
Oxygen Mode of Delivery: Room air
Patient hypoxic: no
*EKG
Interpreted by ED Provider?: Yes
EKG Intrepretation Date: 03/29/25
Heart Rate: 103
Rate: tachycardiac
Rhythm: sinus
[place]: normal axis
Interval: normal interval
*Critical Care Note
Total Time (30-74mins, 75-104mins- exclusive of procedures): Not Applicable
ED Attending Note
-
Portions of this chart may have been created with voice recognition software.� Occasional wrong word or��sound alike� substitutions may have occurred due to the inherent limitations of voice recognition software.
Discharge Plan
Departure
Patient Disposition: Home (Routine Discharge)
Date of Disposition: 03/29/25
Time of Disposition: 05:48
Patient with high blood pressure during this ER visit?: Yes
Condition: Fair
Discharge Problem:
Headache, Chest pain
Instructions: Headaches in adults, Chest Pain DCA Follow Up
Prescriptions:
No Action
Ketamine Nasal [place]
1 spray intranasal QIDPRN PRN (Reason: pain)
lansoprazole [Prevacid] 30 MG capsule,delayed release(DR/EC)
30 mg PO QPM
hydromorphone 4 MG tablet
8 mg PO TID
cyclobenzaprine 10 MG tablet
1 tab PO TID @ 0800,1200,1700
Patient Comments:
PT DOES NOT KNOW DOSE
buprenorphine HCl [Belbuca] 450 MCG film
450 mcg BC PRN PRN (Reason: pain)
prednisone 5 mg Tablet
5 mg PO PRN PRN (Reason: Inflammation)
bupropion HCl 300 mg Tablet Extended Release 24 Hr
300 mg PO DAILY
Vraylar 3 mg Capsule
3 mg PO HS
Medical Marijuana
1 dose inhalation PRN PRN (Reason: pain)
conjugated estrogens 1.25 mg Tablet
5 mg PO DAILY
Rx Instructions:
Per [facility]
Excedrin Migraine 250-250-65 mg Tablet
1 tab PO DIRECTED
diphenhydramine HCl [Benadryl] 25 mg capsule
25 mg PO TID PRN (Reason: allergy symptoms) Qty: 14 0RF
prednisone 50 mg Tablet
50 mg PO DAILY Qty: 4 0RF
epinephrine [EpiPen] 0.3 mg/0.3 mL Auto-Injector
0.3 mg IM .STAT PRN (Reason: anaphylaxis) Qty: 1 0RF
Referrals:
Dung Hurtado DO [Active, Cardiology]
Myles Bey MD [Active, Neurology]
Gio Newsome MD [Family Provider, Internal Medicine]
Activity Restrictions/Additional Instructions:
As discussed, please follow-up for with your primary care physician, as well as referred specialists for further evaluation and treatment.
Interventions
Interventions:
*Risk Screen - Suicide Last Done: 03/29/25 03:29
*General Assessment Last Done: 03/29/25 03:29
*Neglect/Abuse Screening Last Done: 03/29/25 03:29
*ED- Fall Risk Assessment Last Done: 03/29/25 03:29
*ED COVID-19 Vaccine History Last Done: 03/29/25 03:29
*ED Influenza Vaccine History Last Done: 03/29/25 03:29
*Nursing Disposition Last Done: 03/29/25 05:58
ED- Pulmonary Assessment Last Done: 03/29/25 03:43
ED- Neurological Assessment Last Done: 03/29/25 03:43
ED- Cardiac Assessment Last Done: 03/29/25 03:43
ED Swallowing Screen Last Done: 03/29/25 03:55
Discharge Date and Time
Discharge Date/Time: 03/29/25 06:10
Print Language: TUNISIAN
[2025-03-29] MEDS: NSS 250 IV (04:47)
--- NOTE | 2025-03-29 04:55 | EDRN ---
PAtient takes morphine and baclofen q8 hrs at home. Dr. Damon gave the ok for patient to take 0500 dose that patient brought in from home.
[2025-03-29 04:57] LABS: Hematocrit 36.3 % (37.0-47.0); Hemoglobin 12.0 g/dL (12.0-16.0); Mean Corp Hgb Conc. 33.1 g/dL (33.0-37.0); Mean Corpuscular Volume 100.8 fL (81.0-99.0); Platelet Count 289 10^3/uL (130-400); Red Cell Dist. Width 13.4 % (11.5-14.5)
[2025-03-29 05:00] VITALS: BP 123/57
[2025-03-29 05:27] LABS: Troponin I 0.017 ng/ml
[2025-03-29 05:52] VITALS: BP 101/49
[2025-03-29 06:02] LABS: Nucleated Red Blood Cells % 0 %
== END 2025-03-29 06:10 | disposition home or self-care (01) ==
LOC: EMR 03:22
PROVIDERS: EMERGENCY PHYSICIAN Emergency Medicine; FAMILY PHYSICIAN Internal Medicine
DX: R51.9 Headache, unspecified (principal); R07.9 Chest pain, unspecified; I10 Essential (primary) hypertension; G89.4 Chronic pain syndrome; Z87.891 Personal history of nicotine dependence
CPT/HCPCS: 99284; 96374; 96375; 96361; 70450; 80053; 84484; 85025; 93005

== ENCOUNTER → 2025-04-05 10:49 | Outpatient (REF) | payer MEDICARE, SELFPAY | LOC: RAD 10:49 | PROVIDERS: ATTENDING PHYSICIAN Hospitalist | DX: J98.9 Respiratory disorder, unspecified (principal) | CPT/HCPCS: 71046 ==

== ENCOUNTER → 2025-04-08 15:56 | Outpatient (REF) | payer MEDICARE, SELFPAY | LOC: RCS 15:56 | PROVIDERS: ATTENDING PHYSICIAN Internal Medicine Cardiovascular Disease; FAMILY PHYSICIAN Internal Medicine | DX: R07.2 Precordial pain (principal); I10 Essential (primary) hypertension | CPT/HCPCS: 93306 ==

== ENCOUNTER → 2025-04-16 10:26 | Outpatient (REF) | payer MEDICARE, SELFPAY | LOC: RCS 10:26 | PROVIDERS: ATTENDING PHYSICIAN Internal Medicine Cardiovascular Disease; FAMILY PHYSICIAN Internal Medicine | DX: R07.2 Precordial pain (principal) | CPT/HCPCS: 93017 ==